=== PATIENT | male | born 1990 | race Caucasian/White ===

== ENCOUNTER 2017-12-16 18:06 | Emergency (ER) | payer SELFPAY ==
[2017-12-16] MEDS: NALOXONE 0.4 MG/ML VIAL. IV (18:09)
[2017-12-16] MEDS: IV NORMAL SALINE 1000ML BAG 1,000 ML IV (18:10)
[2017-12-16 18:34] LABS: ADD MAN DIFF? NO
[2017-12-16 18:39] LABS: BASO # 0.1 x10^3/uL (0.0-0.2); BASO % 0 % (0-3); EOS # 0.1 x10^3/uL (0.0-0.7); EOS % 1 % (0-3); HEMATOCRIT 43.8 % (39.0-53.0); HEMOGLOBIN 14.5 g/dL (13.0-17.5); LYMPH # 5.8 x10^3/uL (1.0-4.8); LYMPH % 33 % (24-48); MEAN CORPUSCULAR HEMOGLOBIN 30 pg (25-35); MEAN CORPUSCULAR HGB CONC 33 g/dL (31-37); MEAN CORPUSCULAR VOLUME 91 fL (79-100); MONO # 1.2 x10^3/uL (0.0-1.1); MONO % 7 % (0-9); NEUT # 10.6 x10^3uL (1.8-7.7); NEUT % 60 % (31-73); PLATELET COUNT 284 x10^3/uL (140-400); RED CELL DISTRIBUTION WIDTH 14.1 % (11.5-14.5); WHITE BLOOD COUNT 17.9 x10^3/uL (4.0-11.0)
[2017-12-16 18:55] LABS: ANION GAP 9 (6-14); BLOOD UREA NITROGEN 14 mg/dL (8-26); CALCIUM 8.9 mg/dL (8.5-10.1); CARBON DIOXIDE 27 mmol/L (21-32); CHLORIDE 104 mmol/L (98-107); CREATININE 0.9 mg/dL (0.7-1.3); GLUCOSE 153 mg/dL (70-99); POTASSIUM 3.8 mmol/L (3.5-5.1); SODIUM 140 mmol/L (136-145)
[2017-12-16 18:59] LABS: ACETAMIN < 2 mcg/ml (10-30); SALIC 4.7 mg/dL (2.8-20.0)
[2017-12-16 18:59] LABS: ETHANOL < 10 mg/dL (0-10)
[2017-12-16 19:00] LABS: CREATINE KINASE 125 U/L (39-308)
[2017-12-16] MEDS: DEXTROSE 50% 25 GM / 50ML DISP.SYRIN. IV (19:08)
[2017-12-20 07:11] LABS: POC GLUCOSE 146 mg/dL (70-99)
== END 2017-12-16 19:05 | disposition left against medical advice (07) ==
LOC: ER 18:06
DX: T50.991A Poisoning by other drugs, medicaments and biological substances, accidental (unintentional), initial encounter (principal); Y92.89 Other specified places as the place of occurrence of the external cause
CPT/HCPCS: 36415; 80048; 80329; 82550; 82962; 85025; 96374; 96375; 99284; G0480; G6039; J2310; J7030; J7042